=== PATIENT | female | born 1955 ===

== ENCOUNTER → 2018-08-05 15:51 | Outpatient (REF) | payer OTHER, SELFPAY ==
[2018-08-05 16:55] LABS: Magnesium 1.7 mg/dL (1.6-2.3)
== END ==
LOC: LAB 15:51
PROVIDERS: Visit Provider Specialist
DX: K21.9 Gastro-esophageal reflux disease without esophagitis (principal); J69.0 Pneumonitis due to inhalation of food and vomit; D72.829 Elevated white blood cell count, unspecified
CPT/HCPCS: 83735